=== PATIENT | female | born 1980 | race Two or more races ===

== ENCOUNTER 2018-09-12 08:25 | Day surgery (SDC) | payer OTHER ==
[2018-09-12] VITALS (18 sets, daily range): BP systolic 91–109; BP diastolic 46–57; PULSE 86–112; RESP 14–23; Ht 162.6 cm; Wt 52.3 kg
[~2018-09-12] VITALS: Ht 162.6 cm; Wt 52.3 kg
[~2018-09-12 08:25] MED LIST: CEFAZOLIN 1 GM INJ ONE; DESFLURANE 15 MIN ONE
[2018-09-12] MEDS ORDERED: LORAZEPAM 2 MG INJ IV ONE (08:30)
[2018-09-12] MEDS ORDERED: ONDANSETRON 4 MG INJ IV STA (09:02)
[2018-09-12] MEDS ORDERED: ONDANSETRON 4 MG INJ ONE ×2 (09:04→11:49)
[2018-09-12] MEDS ORDERED: LAMO150T3 PO (09:42)
[2018-09-12] MEDS ORDERED: CLON0.5T14 ORAL (09:42)
--- NOTE | 2018-09-12 09:57 | ERD ---
ER Documentation Chief Complaint Chief Complaint 9 WKS WITH VAGINAL BLEEDING. NO HEARTBEAT AT LAST APPT HPI 38-year-old female presents to the emergency department by paramedics complaining of vaginal bleeding. Patient was in her usual state of health which is a say that she was recently diagnosed with a miscarriage. She states that she was 7 weeks by ultrasound with no heart rate noted by her doctor. She was scheduled to have an outpatient D&C. However, over the last 24 hours she is had increasing cramping and significant passages of clots and blood. She then became significantly anxious associated with this began hyperventilating and had tingling about her hands and called the paramedics. I have reviewed the resolution agent pre-hospital care. Pre-hospital vital signs were reviewed. Pre-hospital diagnostic tests were reviewed. Upon arrival, patient is complaining of significant anxiety and the bleeding without significant abdominal pain. ROS All systems reviewed and are negative except as per history of present illness. Medications Home Meds Reported Medications Lamotrigine* (Lamictal*) 150 Mg Tablet, 150 MG PO DAILY, TAB 09/12/18 Clonazepam* (Clonazepam*) 0.5 Mg Tablet, 0.25 MG ORAL DAILY PRN for ANXIETY 09/12/18 Allergies Allergies: Coded Allergies: No Known Allergy (Unverified , 09/12/18) PMhx/Soc History of Surgery: No Anesthesia Reaction: No Hx Neurological Disorder: No Hx Respiratory Disorders: No Hx Cardiac Disorders: No Hx Psychiatric Problems: No Hx Miscellaneous Medical Probl: Yes (MISCARRAIGE 09/2018) Hx Alcohol Use: No Hx Substance Use: No Hx Tobacco Use: No Smoking Status: Never smoker Physical Exam Vitals Vital Signs Date Temp Pulse Resp B/P (MAP) Pulse Ox O2 O2 Flow FiO2 Time Delivery Rate 09/12/18 98.2 74 15 91/54 (66) 100 Room Air 09:30 09/12/18 98.2 95 22 106/64 100 08:33 (78) Physical Exam GENERAL: The patient is well developed and appropriate for usual state of health in no apparent distress HEENT: Pupils equal, round, and reactive to light. EOMI. There is no scleral icterus. NECK: C-spine is soft and supple, there is no meningismus. There is no cervical lymphadenopathy. LUNGS: Clear to auscultation bilaterally. There are no rales, wheezes or rhonchi. HEART: Regular rate and rhythm, no murmurs, clicks, rubs or gallops. ABDOMEN: Soft, non-tender, non-distended. There are bowel sounds in all four quadrants. No rebound or guarding. EXTREMITIES: There is no peripheral cyanosis or edema. No focal swelling or e rythema. NEURO: The patient moves all four extremities with 5/5 strength. Cranial nerves II - XII are intact. Normal gait. Alert and oriented SKIN: There is no apparent rash or petechiae. HEME/LYMPHATIC: There is no evidence of excessive bruising or lymphedema. PSYCHIATRIC: Patient is hyperventilating and seems significantly anxious Result Diagram: 09/12/18 0850 09/12/18 0850 Results 24 hrs Laboratory Tests Test 09/12/18 08:50 White Blood Count 8.8 10^3/ul Red Blood Count 4.08 10^6/ul Hemoglobin 11.9 g/dl Hematocrit 36.0 % Mean Corpuscular Volume 88.2 fl Mean Corpuscular Hemoglobin 29.2 pg Mean Corpuscular Hemoglobin Concent 33.1 g/dl Red Cell Distribution Width 13.8 % Platelet Count 385 10^3/UL Mean Platelet Volume 9.0 fl Immature Granulocytes % 0.200 % Neutrophils % 75.3 % Lymphocytes % 16.9 % Monocytes % 5.5 % Eosinophils % 1.5 % Basophils % 0.6 % Nucleated Red Blood Cells % 0.0 /100WBC Immature Granulocytes # 0.020 10^3/ul Neutrophils # 6.7 10^3/ul Lymphocytes # 1.5 10^3/ul Monocytes # 0.5 10^3/ul Eosinophils # 0.1 10^3/ul Basophils # 0.1 10^3/ul Nucleated Red Blood Cells # 0.0 10^3/ul Sodium Level 137 mmol/L Potassium Level 3.5 mmol/L Chloride Level 104 mmol/L Carbon Dioxide Level 23 mmol/L Anion Gap 10 Blood Urea Nitrogen 5 mg/dl Creatinine 0.66 mg/dl Est Glomerular Filtrat Rate mL/min > 60 mL/min Glucose Level 124 mg/dl Calcium Level 9.0 mg/dl Beta HCG, Quantitative 6925.4 mIU/ml Current Medications Medications Dose Sig/Ashlyn Start Time Status Last (Trade) Ordered Route PRN Stop Time Admin Dose Reason Admin Lorazepam 0.5 mg ONCE ONCE 09/12/18 DC 09/12/18 (Ativan) IV 08:30 09/12/18 08:53 08:32 Ondansetron 4 mg ONCE STAT 09/12/18 DC 09/12/18 HCl (Zofran IV 09:02 09/12/18 09:34 Inj) 09:10 Ondansetron 4 mg STK-MED 09/12/18 DC HCl (Zofran ONCE .ROUTE 09:04 09/12/18 Inj) 09:05 Procedures/MDM Patient was taken to a room, seen and evaluated. Comfort measures were initiated. Diagnostic tests were ordered and reviewed. 3 LEAD RHYTHM STRIP: Normal sinus rhythm without ectopy RADIOLOGY: Reviewed with the radiologist CONSULTATION: Dr. Aguirre, the data collection technician CENTRAL OFFICE WORKER was notified and will be arranging a D/C. REEVALUATION: 0955: Initial diagnostic tests were appreciated indicating no severe anemia or need for transfusion. Patient's anxiety seemed to improve significantly with the Ativan. Her overall clinical status remained stable. MEDICAL DECISION MAKIN-year-old female presents the emergency department with an incomplete miscarriage. Patient does not require immediate transfusion at this time. As per consultation, patient will be admitted for D&C. Departure Diagnosis: Primary Impression: Incomplete miscarriage Condition: CECILLE Amaro Sep 12, 2018 09:57
[2018-09-12] MEDS ORDERED: SOD CHLORIDE 0.9% 1,000 ML IV ONE (11:00)
--- NOTE | 2018-09-12 11:07 | CONS ---
Assessment/Plan Assessment/Plan Assessment/Plan (Daily) A incomplete P suction curettage Consultation Date/Type/Reason Admit Date/Time Date of Consultation: Sep 12, 2018 Type of Consult PEST CONTROL PILOT Reason for Consultation vaginal bleeding Requesting Provider: A Date/Time of Note DATE: 09/12/18 TIME: 10:58 Hx of Present Illness 38y.o lmp july 03 ,last week u/s 9w3d with no FHT pole 7weeks statred vaginal bleeding this morning profusely ,passing clots U/S shows mass in the low segment most likely poc with her hx. ready for suction curettage. profuse vaginal bleeding Past Medical History Medical History: no pertinent history Home Meds Reported Medications Lamotrigine* (Lamictal*) 150 Mg Tablet, 150 MG PO DAILY, TAB 09/12/18 Clonazepam* (Clonazepam*) 0.5 Mg Tablet, 0.25 MG ORAL DAILY PRN for ANXIETY 09/12/18 Medications Current Medications Sodium Chloride 1,000 ml @ 1,000 mls/hr Q1H ONCE IV Last administered on 09/12/18at 10:53; Admin Dose 1,000 MLS/HR; Start 09/12/18 at 11:00; Stop 09/12/18 at 11:59 Allergies: Coded Allergies: No Known Allergy (Unverified , 09/12/18) Past Surgical History Past Surgical Hx: no surgical history Family History Significant Family History: cancer (breast cancer, skin cancer troat cancer), diabetes Social History Alcohol Use: none Smoking Status: Never smoker Exam/Review of Systems Exam Vitals Vital Signs Date Temp Pulse Resp B/P (MAP) Pulse Ox O2 O2 Flow FiO2 Time Delivery Rate 09/12/18 98.2 74 15 91/54 (66) 100 Room Air 09:30 Constitutional: alert, oriented, well developed Eyes: other (anemic con) Results Result Diagram: 09/12/18 0850 09/12/18 0850 Results 24hrs Laboratory Tests Test 09/12/18 08:50 White Blood Count 8.8 Red Blood Count 4.08 L Hemoglobin 11.9 L Hematocrit 36.0 L Mean Corpuscular Volume 88.2 Mean Corpuscular Hemoglobin 29.2 Mean Corpuscular Hemoglobin Concent 33.1 Red Cell Distribution Width 13.8 Platelet Count 385 Mean Platelet Volume 9.0 Immature Granulocytes % 0.200 Neutrophils % 75.3 Lymphocytes % 16.9 Monocytes % 5.5 Eosinophils % 1.5 Basophils % 0.6 Nucleated Red Blood Cells % 0.0 Immature Granulocytes # 0.020 Neutrophils # 6.7 Lymphocytes # 1.5 Monocytes # 0.5 Eosinophils # 0.1 Basophils # 0.1 Nucleated Red Blood Cells # 0.0 Sodium Level 137 Potassium Level 3.5 Chloride Level 104 Carbon Dioxide Level 23 Anion Gap 10 Blood Urea Nitrogen 5 L Creatinine 0.66 Est Glomerular Filtrat Rate mL/min > 60 Glucose Level 124 Calcium Level 9.0 Beta HCG, Quantitative 6925.4 Medications Medication Current Medications Sodium Chloride 1,000 ml @ 1,000 mls/hr Q1H ONCE IV Last administered on 09/12/18at 10:53; Admin Dose 1,000 MLS/HR; Start 09/12/18 at 11:00; Stop 09/12/18 at 11:59 GEORGIE UNDERWOOD MD Sep 12, 2018 11:07
--- NOTE | 2018-09-12 11:10 | PREAC ---
Date/Time of Note Date/Time of Note DATE: 09/12/18 TIME: 11:08 Anesthesia Eval and Record Evaluation Time Pre-Procedure Interview DATE: 09/12/18 TIME: 11:08 Age 38 Sex female NPO: Other (orange juice and water at 0700 ) Preoperative diagnosis vaginal bleeding, 9 weeks , found out baby has no heart rate 1 week ago Planned procedure suction D&C Past Medical History Past Medical History: Includes Psych: Anxiety, Other (taking mood stabilizing agent) : Other (9 weeks ) Surgery & Anesthesia Issues No known issue Meds Anticoagulation: No Beta Mariama within 24 hr: No Reason Beta Mariama not given: Pt. not on B-Mariama Reported Medications Lamotrigine* (Lamictal*) 150 Mg Tablet, 150 MG PO DAILY, TAB 09/12/18 Clonazepam* (Clonazepam*) 0.5 Mg Tablet, 0.25 MG ORAL DAILY PRN for ANXIETY 09/12/18 Current Medications Sodium Chloride 1,000 ml @ 1,000 mls/hr Q1H ONCE IV Last administered on 09/12/18at 10:53; Admin Dose 1,000 MLS/HR; Start 09/12/18 at 11:00; Stop 09/12/18 at 11:59 Meds reviewed: Yes Allergies Coded Allergies: No Known Allergy (Unverified , 09/12/18) Allergies Reviewed: Yes Labs/Studies Labs Reviewed: Reviewed by anesthesiologist Result Diagram: 09/12/18 0850 09/12/18 0850 Laboratory Tests 09/12/18 08:50 Blood Bank Test 09/12/18 08:50 Blood Type O POSITIVE test: N/A (9 weeks ) Pre-procedure Exam Last vitals Vital Signs Date Temp Pulse Resp B/P (MAP) Pulse Ox O2 O2 Flow FiO2 Time Delivery Rate 09/12/18 98.2 74 15 91/54 (66) 100 Room Air 09:30 Airway: Adequate mouth opening, Adequate thyromental dist Mallampati: Mallampati II Teeth: Normal Lung: Normal Heart: Normal ASA Physical Status ASA physical status: 2 Emergency: E Planned Anesthetic General/MAC: ETT Planned Pain Management Parenteral pain med, Local by surgeon Pre-operative Attestations Prior to commencing anesthesia and surgery, the patient was re-evaluated, there was verification of: *The patient's identity *The results of appropriate recent lab work and preoperative vital signs *The above evaluation not changing prior to induction *Anesthetic plan, risk benefits, alternative and complications discussed with patient/family; questions answered; patient/family understands, accepts and wishes to proceed. BRI FLETCHER Sep 12, 2018 11:10
[2018-09-12] MEDS ORDERED: LIDOCAINE 2% (SDV) 5 ML INJ ONE (11:15)
[2018-09-12] MEDS ORDERED: MIDAZOLAM 1 MG/ML 2 ML INJ ONE (11:15)
[2018-09-12] MEDS ORDERED: PROPOFOL 20 ML ONE (11:15)
[2018-09-12] MEDS ORDERED: SUCCINYLCHOLINE CHLORIDE 100 MG/5 ML SYG IV ONE (11:15)
[2018-09-12] MEDS ORDERED: FENTAnyl 50 MCG/ML VIAL ONE (11:15)
[2018-09-12] MEDS ORDERED: ROCURONIUM 50 MG INJ ONE (11:15)
[2018-09-12] MEDS ORDERED: DEXAMETHASONE 4 MG/ML 5 ML INJ ONE (11:49)
[2018-09-12] MEDS ORDERED: METOCLOPRAMIDE 10 MG INJ ONE (11:49)
[2018-09-12] MEDS ORDERED: FAMOTIDINE 20 MG INJ ONE (11:57)
[2018-09-12] MEDS ORDERED: ALBUMIN HUMAN 5% 250 ML ONE (12:03)
[2018-09-12] MEDS ORDERED: VASOPRESSIN 20 UNITS INJ ONE (12:03)
--- NOTE | 2018-09-12 12:12 | PD.PPDC ---
WEBLOGIC DEVELOPER Discharge Instruction Diagnosis [id number] Final Diagnosis: Hyjyw9c incomplete Condition [id number] Patient Condition: [id number] Stable Diet [id number] Diet: Juuag1y Resume Regular Diet Activity/Restrictions [id number] Activity: Kvdhm9s May Shower [id number] Restrictions: [id number] No Lifting No Sexual Activity Nothing in the Vagina No [place] No Tampons, douche Follow-up Follow-up with Physician: 2, Week/Weeks Return to clinic for [id number] CORE CUTTER AND REAMER Instructions: [id number] Fever greater than 101 Chills Worsening abdominal pain Excessive Vaginal Bleeding More than 2 pads per hour Unable to tolerate diet GEORGIE UNDERWOOD MD Sep 12, 2018 12:12
--- NOTE | 2018-09-12 12:15 | SIPON ---
Date/Time of Note Date/Time of Note DATE: 09/12/18 TIME: 12:13 Operative Report Preoperative Diagnosis incomplete Postoperative Diagnosis see pathologic report Operation/Procedure Performed suction curettage Surgeon see signature line instructional assistant MT Anesthesia: general Estimated blood loss: 10 - 50 ml's Transfusion Required none Specimen POC Grafts/Implants none Complications none GEORGIE UNDERWOOD MD Sep 12, 2018 12:15
[2018-09-12] MEDS ORDERED: MIDAZOLAM 1 MG/ML 2 ML INJ IV PRN (12:30)
[2018-09-12] MEDS ORDERED: OXYCODONE/ACETAMINOPHEN (5/325) TAB PO PRN ×2 (12:30)
[2018-09-12] MEDS ORDERED: ONDANSETRON 4 MG INJ IV PRN (12:30)
[2018-09-12] MEDS ORDERED: HYDROmorphONE 1 MG/5 ML IV SYRINGE IV PRN ×3 (12:30)
[2018-09-12] MEDS ORDERED: MEPERIDINE 25 MG INJ IV PRN (12:30)
[2018-09-12] MEDS ORDERED: METOCLOPRAMIDE 10 MG INJ IV PRN (12:30)
[2018-09-12] MEDS ORDERED: OXYTOCIN 10 UNIT INJ IV ONE (12:30)
--- NOTE | 2018-09-12 13:16 | PAC ---
Date/Time of Note Date/Time of Note DATE: 09/12/18 TIME: 13:16 Post-Anesthesia Notes Post-Anesthesia Note Last documented vital signs Vital Signs Date Temp Pulse Resp B/P (MAP) Pulse Ox O2 O2 Flow FiO2 Time Delivery Rate 09/12/18 94 17 92/52 (65) 99 Room Air 13:08 09/12/18 8.0 12:26 09/12/18 98.0 12:26 Activity: WNL Respiratory function: WNL Cardiovascular function: WNL Mental status: Baseline Pain reasonably controlled: Yes Hydration appropriate: Yes Nausea/Vomiting absent: Yes BRI FLETCHER Sep 12, 2018 13:16
--- NOTE | 2018-09-12 16:07 | OPR ---
DATE OF OPERATION: 09/12/2018 PREOPERATIVE DIAGNOSIS: Incomplete . POSTOPERATIVE DIAGNOSIS: Incomplete . See pathological report. PROCEDURE: Suction curettage. ANESTHESIOLOGIST: Refer to the chart. ESTIMATED BLOOD LOSS: From the procedure only 50 mL less. There was large blood clot about 100 mL i n the uterus entering the vagina. ANESTHESIA: General. SURGEON: Abril Aguirre MD SANE RN: net technical architect. PROCEDURE IN DETAILS: Under proper induction of general anesthesia, the patient was placed in dorsal lithotomy position. Perineal area and vagina wall was prepped and draped in usual aseptic manner. Bladder was drained with a Truong catheter which is about 200 mL and in pelvic examination, uterus was felt to be approximately 9 weeks of gestational size, relatively soft. There is no palpable adne xal pathology. Weighted speculum was introduced and anterior lip of cervix was grasped with single t ooth tenaculum. Cervix was opened after the large blood clot was removed from the vagina and then lo wer segment and the anterior lip of cervix was grasped with a single tooth tenaculum. Cervix was ope ramon to size actually 11 Hegar dilator without any resistance. Cavity was sounded, which was about 9 cm in depth and the size 9 suction curette was introduced, connected to the power. The entire cavity was suctioned followed by sharp curettage and re-suctioned with size 8 and followed by sharp curetta ge and suction cavity finally and confirmed the emptiness with a bubble coming out. A 10 units of Pi tocin was given and the tenaculum site was a little oozing which was controlled with the Allis clamp. We reexamined the uterus was much smaller and mariebl down and no bleeding significantly noted. The patient withstood procedure well and was sent to the recovery room in stable condition and afte r surgery, the sponge count correct and the specimen in the blood clots, there was sac intact with fe tus in it which was sent to pathology with some placental tissue. Estimated blood loss from the proc edure was less than 50 mL. There was about 100 mL of clots sitting in the lower segment which was re moved before the suction was done. The patient was sent to recovery room in stable condition. Dictated By: ABRIL GARY/LILIA Conf#: [id number] DID#: [id number]
== END 2018-09-12 16:00 | disposition home or self-care (01) ==
LOC: E/R 08:25 → SUR 11:40 → SDS 11:40 → SUR 16:00
PROVIDERS: ATTEND Obstetrics & Gynecology
DX: O03.4 Incomplete spontaneous abortion without complication (principal)
CPT/HCPCS: 36415; 59812; 76801; 80048; 84702; 85014; 85018; 85025; 86900; 86901; 88305; 96374; 96375; 99285; J1100; J2060; J2175; J2250; J2405; J2590; J2765; J3010; J7030; P9045; J0690